=== PATIENT | female | born 1965 | race Caucasian/White ===

== ENCOUNTER 2017-07-22 12:34 | Day surgery (SDC) | payer OTHER ==
[~2017-07-22] VITALS: Ht 167.6 cm; Wt 67.4 kg
[2017-07-22] MEDS ORDERED: FLUO10 (12:46)
[2017-07-22] MEDS ORDERED: TRAM50 (12:47)
[2017-07-22] MEDS ORDERED: GABA600 (12:47)
[2017-07-22] MEDS ORDERED: IBUP600 (12:48)
[2017-07-22] MEDS ORDERED: MELO7.5 (12:48)
[2017-07-22] MEDS ORDERED: Prilosec Otc20 MG (12:48)
[2017-07-22] MEDS ORDERED: CLON1 (12:57)
== END 2017-07-22 15:36 | disposition home or self-care (01) ==
LOC: ORSCSDS 12:34
DX: G56.21 Lesion of ulnar nerve, right upper limb (principal); G56.01 Carpal tunnel syndrome, right upper limb; G47.33 Obstructive sleep apnea (adult) (pediatric); M79.7 Fibromyalgia
CPT/HCPCS: J0690; J2250; J3010

== ENCOUNTER → 2018-07-01 | Outpatient (CLI) | payer OTHER ==
[~2018-07-01] MED LIST: AMIT25 PO; Advil200 M1 PO; CLON1; CLON1 PO; CYCL10 PO; FLUO10; FLUOXETINE HCL60 MG PO; GABA600; GABA600 PO; IBUP600; MELATONIN10 M2 PO; MELO7.5; MELO7.5 PO; OMEPRAZOLE MAGN20 MG PO; Prilosec Otc20 MG; TRAM50; TRAM50 PO
== END | disposition home or self-care (01) ==
LOC: LAB SHORT 18:03 → LAB 18:03
DX: R10.2 Pelvic and perineal pain (principal)
CPT/HCPCS: 87086

== ENCOUNTER 2018-07-09 08:58 | Day surgery (SDC) | payer OTHER ==
[~2018-07-09] VITALS: Ht 165.1 cm; Wt 59.5 kg
[2018-07-09 10:28] LABS: BASOPHILS ABSOLUTE AUTO 0.05 K/mm3 (0.00-0.23); BASOPHILS PERCENT AUTO 1 % (0-2); EOSINOPHILS ABSOLUTE AUTO 0.12 K/mm3 (0.00-0.68); EOSINOPHILS PERCENT AUTO 2 % (0-6); Hematocrit 37.2 % (33.0-51.0); IMMATURE GRAN ABSOLUTE AUTO 0.03 K/mm3 (0.00-0.10); IMMATURE GRAN PERCENT AUTO 0 % (0-1); LYMPHOCYTES ABSOLUTE AUTO 1.92 K/mm3 (0.84-5.20); LYMPHOCYTES PERCENT AUTO 25 % (21-46); MONOCYTES ABSOLUTE AUTO 0.46 K/mm3 (0.16-1.47); MONOCYTES PERCENT AUTO 6 % (4-13); Mean Corpuscular HGB 29.9 pg (26.0-34.0); Mean Corpuscular HGB Conc 32.3 g/dL (31.5-36.5); Mean Corpuscular Volume 93 fL (80-100); Mean Platelet Volume 9.6 fL (9.1-12.4); NEUTROPHILS ABSOLUTE AUTO 5.03 K/mm3 (1.96-9.15); NEUTROPHILS PERCENT AUTO 66 % (41-73); Platelet Count 300 K/mm3 (150-400); RDW Coefficient Variation 13.4 % (11.7-14.2); RDW Standard Deviation 45.9 fL (35.1-46.3); Red Blood Cell Count 4.01 M/mm3 (3.80-5.20); White Blood Cell Count 7.61 K/mm3 (4.00-11.30)
[2018-07-09 11:00] LABS: Alanine Aminotransfer (ALT/SGP 21 U/L (12-78); Albumin, Blood 4.2 g/dL (3.4-5.0); Albumin/Globulin Ratio 1.2 (0.8-1.8); Alk Phos 68 U/L (50-136); Anion Gap 8 mmol/L (6-16); Aspartate Aminotrans (AST/SGOT 19 U/L (12-37); Bilirubin, Total 0.6 mg/dL (0.1-1.0); Blood Urea Nitrogen 12 mg/dL (8-24); Bun/Creatinine Ratio 15.6 (12.0-20.0); CHOL/HDL RATIO 3.7; CO2, Blood 27 mmol/L (21-32); Calcium, Blood 8.9 mg/dL (8.5-10.1); Chloride, Blood 106 mmol/L (98-108); Cholesterol 196 mg/dL (50-200); Creatinine, Blood 0.77 mg/dL (0.40-1.00); Globulin, Blood 3.6 g/dL (2.2-4.0); Glomerular Filtration Rate >60 (60-); Glucose, Blood 72 mg/dL (70-99); HDL Cholesterol 53 mg/dL (>39); LDL/HDL RATIO 2.4; Low Density Lipoprotein Chol 129 mg/dL (0-110); Potassium, Blood 3.9 mmol/L (3.5-5.5); Sodium, Blood 141 mmol/L (136-145); Total Protein, Blood 7.8 g/dL (6.4-8.2); Triglycerides 69 mg/dL (30-160); Very Low Density Lipoprot Chol 13 mg/dL (6-32)
[2018-07-09 13:48] LABS: Rheumatoid Factor, Serum Negative (Negative)
[2018-07-10 08:11] LABS: COMPLEMENT C3, SERUM 109 mg/dL (82-167); COMPLEMENT C4, SERUM 23 mg/dL (14-44)
[2018-07-10 09:27] LABS: Antinuclear Antibody Screen Negative (Negative)
[2018-07-13 00:05] LABS: ANTI-DSDNA ANTIBODIES <1 IU/mL (0-9); RNP ANTIBODIES <0.2 AI (0.0-0.9); SJOGREN'S ANTI-SS-A <0.2 AI (0.0-0.9); SJOGREN'S ANTI-SS-B <0.2 AI (0.0-0.9); SMITH ANTIBODIES <0.2 AI (0.0-0.9)
== END 2018-07-09 10:59 | disposition home or self-care (01) ==
LOC: ORSCSDS 08:58
PROVIDERS: Surgery
PROC: 0DB58ZX Excision of Esophagus, Via Natural or Artificial Opening Endoscopic, Diagnostic (ICD-10-PCS; principal; 2018-07-09 10:15)
PROC: 0DJD8ZZ Inspection of Lower Intestinal Tract, Via Natural or Artificial Opening Endoscopic (ICD-10-PCS; principal; 2018-07-09 10:15)
PROC: 0DB68ZX Excision of Stomach, Via Natural or Artificial Opening Endoscopic, Diagnostic (ICD-10-PCS; principal; 2018-07-09 10:15)
DX: R10.13 Epigastric pain (principal); K21.9 Gastro-esophageal reflux disease without esophagitis; K29.70 Gastritis, unspecified, without bleeding; R19.4 Change in bowel habit
CPT/HCPCS: 80053; 80061; 85025; 86038; 86160; 86225; 86235; 86430; 88305; 88342; J2704; J7120

== ENCOUNTER → 2018-07-21 | Outpatient (CLI) | payer OTHER | END | disposition home or self-care (01) | LOC: LAB 18:35 → LAB SHORT 18:35 | DX: N39.0 Urinary tract infection, site not specified (principal) | CPT/HCPCS: 87077; 87086; 87186 ==

== ENCOUNTER 2018-08-19 07:32 | Day surgery (SDC) | payer OTHER ==
[~2018-08-19] VITALS: Ht 169 cm; Wt 59.6 kg
--- NOTE | 2018-08-19 12:10 | NUR ---
Discharge instructions reviewed with patient. Patient verbalizes understanding. Copy given to patient to take home. Discharged via wheelchair to private car for ride home.
== END 2018-08-19 23:35 | disposition home or self-care (01) ==
LOC: ORSCMMR 07:32 → ORD 09:00 → ORSCMMR 23:35
PROVIDERS: Surgery
PROC: BF031ZZ Plain Radiography of Gallbladder and Bile Ducts using Low Osmolar Contrast (ICD-10-PCS; principal; 2018-08-19 09:00)
PROC: 0FT44ZZ Resection of Gallbladder, Percutaneous Endoscopic Approach (ICD-10-PCS; principal; 2018-08-19 09:00)
DX: K80.20 Calculus of gallbladder without cholecystitis without obstruction (principal); G47.33 Obstructive sleep apnea (adult) (pediatric); K21.9 Gastro-esophageal reflux disease without esophagitis; Z79.899 Other long term (current) drug therapy
CPT/HCPCS: 74300; 88304; A9270-GY; C1729; J0690; J1100; J1885; J2250; J2370; J2405; J2704; J2710; J3010; J7120

== ENCOUNTER → 2018-08-25 | Outpatient (CLI) | payer OTHER ==
[2018-08-26 15:08] LABS: HPV 16 Negative (Negative); HPV 18 Negative (Negative); HPV OTHER HR TYPES Negative (Negative)
== END | disposition home or self-care (01) ==
LOC: LAB 13:09 → LAB SHORT 13:09
PROVIDERS: Registered Nurse
DX: R10.2 Pelvic and perineal pain (principal)
CPT/HCPCS: 87624; 88175

== ENCOUNTER 2019-08-09 10:42 | Day surgery (SDC) | payer OTHER ==
[~2019-08-09] VITALS: Ht 165.1 cm; Wt 59.4 kg
[~2019-08-09 10:42] MED LIST changes: +ACET325 PO; +BUSP5 PO; +Estrace Vagin42.5 GM VAG; +OXYB5 PO
[2019-08-09] MEDS ORDERED: ESTRADIOL (12:06)
--- NOTE | 2019-08-09 12:09 | NUR ---
Ambulatory in Day Surgery History, Chart, Medications and Allergies reviewed before start of procedure. Lungs clear T/O to Auscultation. Patient confirms NPO status and agrees with scheduled surgery. Pre-Op teaching done. Pt verbalizes understanding. Patient States Post-Procedure ride home has been arranged.
--- NOTE | 2019-08-09 14:03 | NUR ---
08/09/19 1403 Lilly Ambrose LEVAQUIN 500MG STARTED IN PRE-OP
--- NOTE | 2019-08-09 16:51 | NUR ---
430CC STERIL WATER PLACED THRU NERI CATH PT STATES I FEEL LIKE I MAY HAVE TO GO TO BATHROOM NERI DCD PT UP TO RESTROOM
--- NOTE | 2019-08-09 17:20 | NUR ---
DISCHARGE Patient up to Ambulate independently. Gait steady. Discharge instructions reviewed with patient. Patient verbalizes understanding. Copy given to patient to take home. Patient States Post-Procedure ride home has been arranged. Discharged via wheelchair to private car for ride home. PT WAS ABLE TO VOID 250 CC AFTER PLACING 420CC OF STERIL WATER IN BLADDER THRU CATH PT DENIED ANY TROUBLE WITH VOIDING EDUCATED PT ON URINARY RETENTION SHE VERBALIZED UNDERSTANDING. DISCHARGE INSTRUCTIONS GIVEN WITH HARD COPY OF RX
== END 2019-08-09 22:37 | disposition home or self-care (01) ==
LOC: ORSCMMR 10:42 → ORD 12:00 → ORSCMMR 22:37
PROVIDERS: Obstetrics & Gynecology
PROC: 0TSD0ZZ Reposition Urethra, Open Approach (ICD-10-PCS; principal; 2019-08-09 13:30)
DX: N39.3 Stress incontinence (female) (male) (principal); K21.9 Gastro-esophageal reflux disease without esophagitis; Z79.899 Other long term (current) drug therapy
CPT/HCPCS: C1771; J0171; J1100; J1940; J1956; J2250; J2370; J2405; J2704; J3010; J7120

== ENCOUNTER → 2019-11-02 | Outpatient (CLI) | payer OTHER ==
[~2019-11-02] MED LIST changes: +ESTRADIOL
== END | disposition home or self-care (01) ==
LOC: LAB 18:40 → LAB SHORT 18:40
DX: G89.4 Chronic pain syndrome (principal)
CPT/HCPCS: G0480

== ENCOUNTER 2020-11-28 06:25 | Day surgery (SDC) | payer OTHER ==
[~2020-11-28] VITALS: Ht 165.1 cm; Wt 58.6 kg
[~2020-11-28 06:25] MED LIST changes: -Advil200 M1 PO; -ESTRADIOL; +ESTRADIOL1 MG PO; +IBUP200
== END 2020-11-28 08:07 | disposition home or self-care (01) ==
LOC: ORSCSDS 06:25
PROVIDERS: Orthopaedic Surgery
PROC: 01N50ZZ Release Median Nerve, Open Approach (ICD-10-PCS; principal; 2020-11-28 07:30)
DX: G56.02 Carpal tunnel syndrome, left upper limb (principal); F41.8 Other specified anxiety disorders; Z79.899 Other long term (current) drug therapy
CPT/HCPCS: J2250; J2704; J3010; J7120

== ENCOUNTER 2021-08-08 09:32 | Day surgery (SDC) | payer OTHER ==
[~2021-08-08] VITALS: Ht 165.1 cm; Wt 61.2 kg
--- NOTE | 2021-08-08 11:34 | NUR ---
08/08/21 1134 ELBA BOLDEN 0.15MG OF EPI ADDED TO 0.5% MARCAINE 30MLS TO CREATE A LOCAL SOLUTION OF 0.5% MARCAINE WITH EPI 1:200,000. 10MLS OF LOCAL SOLUTION POURED ONTO STERILE FIELD. 10MLS LOCAL INJECTED INTO OPERATIVE SITE AT BEGINNING OF CASE.
== END 2021-08-08 12:50 | disposition home or self-care (01) ==
LOC: ORSCSDS 09:32
PROVIDERS: Orthopaedic Surgery
PROC: 0LB60ZZ Excision of Left Lower Arm and Wrist Tendon, Open Approach (ICD-10-PCS; principal; 2021-08-08 11:00)
DX: M67.432 Ganglion, left wrist (principal); Z79.899 Other long term (current) drug therapy; K21.9 Gastro-esophageal reflux disease without esophagitis; F41.8 Other specified anxiety disorders
CPT/HCPCS: 88304; J0171; J0690; J1100; J1885; J2250; J2405; J2704; J3010; J7120

== ENCOUNTER → 2022-01-13 | Outpatient (CLI) | payer OTHER ==
[2022-01-14 14:02] LABS: Stool Occult Bld Immuno 1 Negative (NEGATIVE)
== END ==
LOC: LAB 20:07 → LAB SHORT 20:07
PROVIDERS: Nurse Practitioner Family
DX: D64.9 Anemia, unspecified (principal)
CPT/HCPCS: 82274

== ENCOUNTER → 2023-02-27 | Outpatient (CLI) | payer OTHER ==
[2023-02-27 07:16] LABS: Source, Urine Clean Catch
[2023-02-27 13:28] LABS: Appearance, Urine Clear (Clear); Bilirubin, Urine Neg (Neg); Blood, Urine Neg (Neg); Color, Urine Yellow (P-Yellow); Glucose Qualitative, Urine Neg (Neg); Ketones, Urine Neg (Neg); Leukocyte Esterase, Urine Neg (Neg); Nitrite, Urine Neg (Neg); Protein, Urine Neg (Neg); Urobilinogen, Urine NORM (Normal)
== END | disposition home or self-care (01) ==
LOC: LAB 06:30 → LAB SHORT 06:30
PROVIDERS: Nurse Practitioner Family
DX: N39.0 Urinary tract infection, site not specified (principal)
CPT/HCPCS: 81003